=== PATIENT | male | born 1945 | race Caucasian/White ===

== ENCOUNTER → 2016-10-14 | Outpatient (CLI) | payer OTHER ==
[~2016-10-14] MED LIST: ASCO500T16 PO; ASPI-435 PO; MAGN400T5 PO; MELO7.5T5 PO; MULT-513 PO; OMEP40CA41 PO; PRAV20TA PO; TAMS0.4C59 PO; VIT B PO
== END | disposition home or self-care (01) ==
LOC: C.MAMM 10:01
PROVIDERS: ATTEND Family Medicine
DX: M81.0 Age-related osteoporosis without current pathological fracture (principal)

== ENCOUNTER → 2017-12-08 | Outpatient (CLI) | payer OTHER ==
[~2017-12-08] MED LIST changes: +OPTIRAY 320 IV PRN
--- NOTE | 2017-12-08 11:34 | DIAGNOSTIC IMAGING REPORT ---
ABD/PELVIS COMBO CLINICAL HISTORY: 72 years-old Male presenting with GROSS HEMATURIA, NO ORAL. TECHNIQUE: Multidetector CT of the abdomen and pelvis was performed before and after the administration of intravenous contrast. IV contrast: 93 mL of Optiray 320. A dose lowering technique was used consistent with the principles of ALARA (as low as reasonably achievable). COMPARISON: None. CT DOSE (mGy.cm): The estimated cumulative dose is 1725.46 mGycm. FINDINGS: Bag Maker topogram: Unremarkable. Lung bases: Minimal basilar opacities, likely atelectasis. Normal heart size. No pericardial or pleural effusion. Liver: Normal morphology. Normal density. Well-defined hypodensity centrally in the liver, indeterminate but likely hepatic cyst or hamartoma. Patent hepatic vasculature. Biliary: No intrahepatic or extrahepatic biliary ductal dilatation. Normal gallbladder. Pancreas: Mild parenchymal atrophy. Spleen: Normal. Adrenal glands: Normal. Kidneys and ureters: Multiple parapelvic cysts noted. No solid renal mass. No filling defect within the renal collecting systems or ureters. No nephrolithiasis. No hydronephrosis. Normal ureters. Bladder: Circumferential bladder wall thickening. No focal polypoid wall thickening. Pelvic organs: Prostate enlargement likely secondary to benign prostatic hyperplasia. Bowel: Diverticulosis of the sigmoid and descending colon. No pericolonic fat stranding. Moderate stool burden throughout the colon. The appendix is normal. No bowel obstruction. Peritoneal cavity: No free fluid or intraperitoneal gas. Lymph nodes: No enlarged lymph nodes in the abdomen or pelvis. Vasculature: Atherosclerosis of the normal caliber abdominal aorta. IVC patent. Abdominal wall: Small fat-containing umbilical hernia. Fat containing left inguinal hernia. Bilateral hydroceles noted. Musculoskeletal: Degenerative changes of the spine. IMPRESSION: 1. No solid renal or urothelial mass. No nephrolithiasis. No hydronephrosis. No gross evidence of a bladder mass. This may not preclude the necessity of cystoscopy. 2. Circumferential bladder wall thickening likely indicates chronic outlet obstruction in the setting of prostatomegaly. Electronically signed by: Myron Britt M.D. 12/08/2017 11:33 AM Dictated Date/Time: 12/08/2017 11:22 AM
== END | disposition home or self-care (01) ==
LOC: C.CTS 10:54
PROVIDERS: ATTEND Physician Assistant
DX: R31.0 Gross hematuria (principal)

== ENCOUNTER → 2017-12-21 | Outpatient (CLI) | payer OTHER ==
[~2017-12-21] MED LIST changes: -OPTIRAY 320 IV PRN
== END | disposition home or self-care (01) ==
LOC: C.PATHSPEC 17:32
PROVIDERS: ATTEND Urology
DX: R31.29 Other microscopic hematuria (principal)

== ENCOUNTER → 2018-03-15 | Outpatient (CLI) | payer OTHER ==
[~2018-03-15] MED LIST changes: +ASCO1CAP3 PO; -ASCO500T16 PO; +AVD5 PO; +CRAN500C2 PO; +GLUCTAB7 PO; +LISI-729 PO; -MULT-513 PO; +OXYC-57 PO; +PHEN-876 PO; +TAMS0.4C38 PO; -TAMS0.4C59 PO; -VIT B PO
[2018-03-15 14:33] LABS: BASO % 0.5 %; BASO ABS # 0.03 K/uL (0-0.2); EOS % 1.1 %; EOS ABS # 0.07 K/uL (0-0.5); LYMPH % 28.7 %; MEAN CELL VOLUME 91.1 fL (80-100); MEAN CORPUSCULAR HEMOGLOBIN 31.1 pg (25-34); MEAN CORPUSCULAR HGB CONC 34.1 g/dl (32-36); MONO % 6.7 %; MONO ABS # 0.44 K/uL (0.11-0.59); NEUT ABS # 4.17 K/uL (1.4-6.5); PLATELET COUNT 259 K/uL (130-400); RED CELL DISTRIBUTION WIDTH CV 12.9 % (11.5-14.5); RED CELL DISTRIBUTION WIDTH SD 42.9 fL (36.4-46.3); WHITE BLOOD COUNT 6.61 K/uL (4.8-10.8)
[2018-03-15 14:56] LABS: BLOOD UREA NITROGEN 17 mg/dl (7-18); CALCIUM 8.5 mg/dl (8.5-10.1); CARBON DIOXIDE 28 mmol/L (21-32); CREATININE 0.98 mg/dl (0.60-1.40); GLUCOSE 196 mg/dl (70-99); POTASSIUM 4.1 mmol/L (3.5-5.1); SODIUM 138 mmol/L (136-145)
--- NOTE | 2018-03-15 15:32 | DIAGNOSTIC IMAGING REPORT ---
CHEST 2 VIEWS ROUTINE CLINICAL HISTORY: 73 years-old Male presenting with preoperative assessment. TECHNIQUE: PA and lateral views of the chest were obtained. COMPARISON: 07/18/2013. FINDINGS: Atherosclerosis of the aortic arch. Mild tortuosity of the descending thoracic aorta. Cardiac silhouette normal in size. Lungs are mildly hyperinflated. No focal opacity. No pleural effusion or pneumothorax. Degenerative changes of the glenohumeral joints and spine. Upper abdomen normal. IMPRESSION: 1. Findings suggest emphysema. No focal infiltrate to suggest pneumonia. Electronically signed by: Myron Britt M.D. 03/15/2018 3:31 PM Dictated Date/Time: 03/15/2018 3:30 PM
== END | disposition home or self-care (01) ==
LOC: C.CPL 12:58
PROVIDERS: ATTEND Urology
DX: Z01.810 Encounter for preprocedural cardiovascular examination (principal); Z01.811 Encounter for preprocedural respiratory examination; Z01.812 Encounter for preprocedural laboratory examination; R00.1 Bradycardia, unspecified

== ENCOUNTER → 2018-03-28 | Day surgery (SDC) | payer OTHER ==
--- NOTE | 2018-03-15 13:55 | PAT Medication Instructions ---
Service Date Mar 15, 2018. Current Home Medication List Ascorbic Acid (Vitamin C), 500 MG PO QAM Aspirin (Aspirin 81), 81 MG PO QAM Cranberry (Vaccinium Macrocarp (Cranberry), 1,500 MG PO HS Dutasteride (Avodart), 0.5 MG PO QAM Ifrdqixqrdf-Ntwbdpdfflt-Zln C- (Glucosamine Chondroitin), 2 TAB PO QAM Lisinopril (Zestril), 2.5 MG PO QAM Magnesium Oxide (Mag-Ox), 400 MG PO QAM Meloxicam (Mobic), 7.5 MG PO QAM Omeprazole (Prilosec), 40 MG PO QAM Pravastatin (Pravachol ), 20 MG PO QAM Medication Instructions For Your Scheduled Surgery -Check with your surgeon for instructions for: Meloxicam (Mobic), 7.5 MG PO QAM - Hold the following medications starting tomorrow 03/16: Mvfvigejhla-Qpjztvcrdnx-Kbe C- (Glucosamine Chondroitin), 2 TAB PO QAM Cranberry (Vaccinium Macrocarp (Cranberry), 1,500 MG PO HS - Hold the following medications per your surgeon's instructions: Aspirin (Aspirin 81), 81 MG PO QAM - Hold the following medications the morning of surgery: Ascorbic Acid (Vitamin C), 500 MG PO QAM Dutasteride (Avodart), 0.5 MG PO QAM Lisinopril (Zestril), 2.5 MG PO QAM Magnesium Oxide (Mag-Ox), 400 MG PO QAM - Take the following medications the morning of surgery with a sip of water: Omeprazole (Prilosec), 40 MG PO QAM Pravastatin (Pravachol ), 20 MG PO QAM - Take the following medications as scheduled the night before surgery: Tamsulosin (Flomax) 0.4MG PO QHS If you have any questions please call us at [phone] or [phone] or [phone]
[~2018-03-28] VITALS: Ht 177.8 cm; Wt 81.0 kg
[~2018-03-28] MED LIST changes: +ATROPINE SULFATE 0.1 MG/ML 5ML SYR IV PRN; +CIPROFLOXACIN / D5W 400 MG IV SCH; +DEXAMETHASONE SOD INJ 4 MG/ML VIAL ONE; +EpHEDrine SULFATE INJ 50 MG/ML AMP IV PRN; +FENTANYL CITRATE INJ 50 MCG/1 ML 2 ML VIAL IV PRN; +FENTANYL CITRATE INJ 50 MCG/1 ML 2 ML VIAL ONE; +LACTATED RINGER'S 1000ML 1,000 ML IV SCH; +LIDOCAINE HCL 2% 2 ML VIAL (20MG/ML) ONE; +MIDAZOLAM HCL 1 MG/ML 2ML VIAL ONE; +ONDANSETRON INJ 2 MG/ML 2 ML VIAL ONE; +OXYCODONE/ACETAMINOPHEN 5-325 TAB PO PRN; +PROPOFOL IV EMULSION 10 MG/ML 20 ML VIAL ONE
[2018-03-28 06:46] VITALS: BP 171/86; PULSE 60; TEMP 36.8; O2SAT 96; Ht 177.8 cm; Wt 81.0 kg
--- NOTE | 2018-03-28 07:19 | History & Physical Bridge Note ---
H&P Re-Evaluation Bridge Note: I have examined the patient, reviewed the History & Physical and in the interval since the performance of the History & Physical I have noted the following changes of clinical significance: No changes noted
--- NOTE | 2018-03-28 08:27 | [facility] Operative Report ---
Operative Report Operative Date Mar 28, 2018. Pre-Operative Diagnosis Bladder Cancer Post-Operative Diagnosis Bladder Cancer Procedure(s) Performed Transurethral resection of Bladder Tumor Surgeon Dr. Deven Walters [employer] Surgeon(s) None Estimated Blood Loss 2 ml Findings Cystoscopy showed a normal anterior urethra prosthetic fossa was moderately obstructing with primarily elevated median lobe. Bladder showed a medium-sized tumor right lateral wall. Specimens A: Bladder tumor Drains None Anesthesia Type General Complication(s) none Disposition yes Recovery Room / PACU Indications Patient is a 73-year-old white male who on evaluation of gross hematuria was found to have a bladder tumor being brought in for resection Description of Procedure After the induction of an adequate general anesthetic and appropriate timeout patient was placed in the dorsolithotomy position. Lower abdomen genitalia were prepped with Hibiclens draped in a sterile fashion. Using a 22 [place] cystoscope routine cystoscopic exam was performed the above-noted findings with the 30 and 70 lenses. Next using a 24 [place] resection scope and bipolar loop the tumor was resected. The area was then fulgurated for hemostasis. Care was taken to avoid injury to either ureteral orifice. Ellik evacuator was used to evacuate the tumor fragments in the bladder. Bladder was reinspected there was no bleeding from resection site. Patient's bladder was drained cystoscope and sheath removed. All needle sponge and instrument counts were correct at the end of the case. Patient tolerated the procedure well and was taken to recovery room in stable condition. I attest to the content of the Intraoperative Record and any orders documented therein. Any exceptions are noted below.
--- NOTE | 2018-03-28 08:29 | Discharge Instructions ---
Discharge Instructions Date of Service Mar 28, 2018. Visit Reason for Visit: Bladder Cancer Discharge Discharge Diagnosis / Problem: Bladder tumor Discharge Goals Goal(s): Therapeutic intervention Activity Recommendations Activity Limitations: per Instructions/Follow-up section Exercise/Sports Limitations: rest today May Resume Sexual Activity: when tolerated Shower/Bathe: no limitations Driving or Machine Use: resume 1 day after discharge Anesthesia . Post Anesthesia Instructions: If you have had General Anesthesia or IV Sedation: * Do not drive today. * Resume driving when surgeon permits. * Do not make important decisions or sign legal documents today. * Call surgeon for: 1. Temperature elevations greater than 101 degrees F. 2. Uncontrollable pain. 3. Excessive bleeding. 4. Persistent nausea and vomiting. 5. Medication intolerance (nausea, vomiting or rash). * For nausea and vomiting use only clear liquids such as: tea, soda, bouillon until nausea subsides, then gradually increase diet as tolerated. * If you have any concerns or questions, call your surgeon's office. If physician is unavailable and it is an emergency, call 911 or go to the nearest emergency room. . Diet Recommendations Recommended Home Diet: resume previous diet Procedures Procedures Performed: Transurethral resection of Bladder Tumor Pending Studies Studies pending at discharge: no Medical Emergencies . Who to Call and When: Medical Emergencies: If at any time you feel your situation is an emergency, please call 911 immediately. . Non-Emergent Contact Non-Emergency issues call your: Urologist Call Non-Emergent contact if: temperature is above 101.5, your pain is not controlled . . "Provider Documentation" section prepared by Deven Walters. . [place] Drug Monitoring Program Search Results: patient reviewed within database
[2018-03-28 09:05] VITALS: BP 156/76; PULSE 65; TEMP 36.3; O2SAT 95
--- NOTE | 2018-03-28 09:36 | Anesthesiology Progress Note ---
Anesthesia Post Op Note Date & Time Mar 28, 2018 at 09:36 Vital Signs Pain Intensity: 0 Vital Signs Past 12 Hours Date Time Temp Pulse Resp B/P (MAP) Pulse Ox O2 Delivery O2 Flow Rate FiO2 03/28/18 08:55 63 19 147/84 97 Nasal Cannula 4 03/28/18 08:45 66 16 143/88 97 Nasal Cannula 4 03/28/18 08:35 67 17 144/83 98 Oxymask 10 03/28/18 08:25 71 19 143/80 97 Oxymask 10 03/28/18 08:18 36 73 22 147/84 97 Oxymask 10 03/28/18 06:46 36.8 60 18 171/86 (114) 96 Room Air Notes Mental Status: alert / awake / arousable, participated in evaluation Pt Amnestic to Procedure: Yes Nausea / Vomiting: adequately controlled Pain: adequately controlled Airway Patency, RR, SpO2: stable & adequate BP & HR: stable & adequate Hydration State: stable & adequate Anesthetic Complications: no major complications apparent
[2018-03-28 09:40] VITALS: BP 156/87; PULSE 68; TEMP 37; O2SAT 93
[2018-03-28 10:05] VITALS: BP 134/67; PULSE 71; TEMP 36.6; O2SAT 93
== END | disposition home or self-care (01) ==
LOC: C.ACU 06:19
PROVIDERS: ATTEND Urology
DX: C67.9 Malignant neoplasm of bladder, unspecified (principal); J44.9 Chronic obstructive pulmonary disease, unspecified; I10 Essential (primary) hypertension; E11.9 Type 2 diabetes mellitus without complications; N40.0 Benign prostatic hyperplasia without lower urinary tract symptoms; M19.90 Unspecified osteoarthritis, unspecified site; Z79.82 Long term (current) use of aspirin; Z79.899 Other long term (current) drug therapy; F17.220 Nicotine dependence, chewing tobacco, uncomplicated; Z88.6 Allergy status to analgesic agent